=== PATIENT | female | born 1950 | race Two or more races ===

== ENCOUNTER 2023-04-28 05:59 | Inpatient (IN) | payer OTHER ==
[~2023-04-28] VITALS: Ht 157.5 cm; Wt 74.0 kg
[~2023-04-28 05:59] MED LIST: AMLO1TAB22 PO; ASPI1TAB20 PO; ATO40T PO; CLOP75TA28 PO; GLIP5TAB12 PO; LISI10TA34 PO; METF-372 PO; METO-289 PO; OXYB5SYP4 PO
[2023-04-28] MEDS ORDERED: ceFAZolin 2 GM/D5W100ml 100 ML IV ONE (06:16)
[2023-04-28] MEDS ORDERED: LIDOCAINE 1% (LOCAL ANESTH.) PF 5ml SDV ONE (06:34)
[2023-04-28] MEDS ORDERED: LIDOCAINE HCL (LOCAL ANESTH.) 0.5 % 50ML MDV IJ ONE (06:35)
[2023-04-28] MEDS ORDERED: PROTAMINE SULFATE 10 MG/ML 5ML VIAL IV ONE (06:35)
[2023-04-28] MEDS ORDERED: BUPIVACAINE 0.5% P/F INJ 10 ML VIAL ONE (06:35)
[2023-04-28] MEDS ORDERED: HEPARIN SODIUM (PORCINE) 5000 UNITS/ML 1ML VIAL ONE (06:35)
[2023-04-28] MEDS ORDERED: SUCCINYLCHOLINE CHLORIDE 20 MG/ML 10ML VIAL IV ONE (07:03)
[2023-04-28] MEDS ORDERED: PROPOFOL 10 MG/ML 20 ML IV ONE (07:06)
[2023-04-28] MEDS ORDERED: fentaNYL CITRATE 100 MCG/2 ML VL ONE ×2 (07:06→07:40)
[2023-04-28] MEDS ORDERED: THROMBIN (BOVINE) 5000 UNIT SOL VIAL ONE (07:16)
[2023-04-28] MEDS ORDERED: GELATIN 1 SPONGE SIZE 100 TOP ONE (07:16)
[2023-04-28] MEDS ORDERED: LABETALOL HCL 5 MG/ML ML 20ML VIAL IV ONE (07:34)
[2023-04-28] MEDS ORDERED: ROCURONIUM 10MG/ML 10ML VIAL IV ONE (07:48)
[2023-04-28] MEDS ORDERED: ePHEDrine SULFATE 50 MG/ML AMP ONE (07:49)
[2023-04-28] MEDS ORDERED: ONDANSETRON HCL 4 MG/2 ML VIAL ONE (08:02)
[2023-04-28] MEDS ORDERED: LIDOCAINE 1% INJ PF 5ML AMP ONE (08:27)
[2023-04-28] MEDS ORDERED: SUGAMMADEX 200mg/2ml Vial (100MG/ML) IV ONE (09:03)
[2023-04-28 09:28] VITALS: PULSE 86; RESP 20; O2SAT 97
[2023-04-28] MEDS ORDERED: ONDANSETRON HCL 4 MG/2 ML VIAL IV PRN (09:45)
[2023-04-28] MEDS: InsuLIN REG 1unit/0.01ml Soln (100units/ml) SC ONE ×2 (09:45→09:48)
[2023-04-28] MEDS ORDERED: MEPERIDINE HCL (25 MG/ML) 1ML VIAL IV PRN (09:45)
[2023-04-28] MEDS ORDERED: HYDROmorphone HCL 2 MG/ML VL/or syr IV PRN (09:45)
[2023-04-28] MEDS ORDERED: InsuLIN REG 1unit/0.01ml Soln (100units/ml) ONE ×2 (09:47→15:38)
[2023-04-28] MEDS: LABETALOL HCL 5 MG/ML 4ML SYRINGE IV PRN ×4 (09:51→10:36)
[2023-04-28] MEDS ORDERED: hydrALAZINE HCL 20 MG/ML VL ONE (10:48)
[2023-04-28] MEDS ORDERED: hydrALAZINE HCL 20 MG/ML VL IV ONE (11:00)
[2023-04-28] MEDS ORDERED: DEXTROSE (50%) 50ML SYRG IV PRN (15:45)
[2023-04-28 16:56] VITALS: BP 145/51; PULSE 84; RESP 18; TEMP 98.6; O2SAT 94
[2023-04-28] MEDS ORDERED: hydrALAZINE HCL 20 MG/ML VL IV PRN (17:45)
[2023-04-28] MEDS: ACCU-CHEK COMFORT CURVE STRIP VI SCH ×2 (17:47→20:55)
[2023-04-28] MEDS: InsuLIN REG 1unit/0.01ml Soln (100units/ml) SC SCH ×2 (17:47→21:02)
[2023-04-28 18:58] LABS: Basophils # (auto) 0.1 10 ^3/uL (0-0.2); Basophils % (auto) 0.8 % (0.0-2.0); Eosinophils # (auto) 0.1 10 ^3/uL (0-0.8); Eosinophils % (auto) 1.2 % (0.0-7.0); Hematocrit 32.7 % (36.0-46.0); Hemoglobin 10.4 g/dL (12.2-16.2); Lymphocytes # (auto) 1.9 10 ^3/uL (0.4-5.4); Lymphocytes % (auto) 21.8 % (10.0-50.0); Mean Corpuscular Hemoglobin 25.9 pg (28.0-32.0); Mean Corpuscular Hgb Conc. 31.8 g/dL (32.0-36.0); Mean Corpuscular Volume 81.2 fL (80.0-100.0); Monocytes # (auto) 0.6 10 ^3/uL (0-1.3); Neutrophils # (auto) 6.2 10 ^3/uL (1.6-8.6); Neutrophils % (auto) 69.2 % (37.0-80.0); Red Blood Cells 4.03 10^6/uL (4.0-5.20); Red Cell Distribution Width 16.4 % (11.8-14.3); White Blood Cell 8.9 10^3/uL (4.4-10.8)
[2023-04-28 19:22] LABS: Potassium 4.6 mmol/L (3.5-5.1)
[2023-04-28 19:24] LABS: Calcium 9.4 mg/dL (8.5-10.1)
[2023-04-28 19:29] LABS: BUN/Creatinine Ratio 14.5 (10.0-20.0)
[2023-04-28 19:31] LABS: Albumin 4.1 g/dL (3.2-4.8); Phosphorus 3.2 mg/dL (2.4-5.1)
[2023-04-28 20:00] VITALS: PULSE 84; PULSE 87; RESP 18; O2SAT 92
[2023-04-28] MEDS: ENOXAPARIN SOD 40 MG/0.4 ML SYRINGE SC SCH (21:04)
[2023-04-28] MEDS ORDERED: ACETAMINOPHEN 325 MG TAB PO PRN (21:45)
[2023-04-28 22:00] VITALS: BP 131/41; PULSE 87; RESP 18; TEMP 99.2; O2SAT 92
[2023-04-29] VITALS (8 sets, daily range): BP systolic 139–169; BP diastolic 47–60; PULSE 78–97; RESP 16–19; TEMP 98.3–99.5; O2SAT 90–94
[2023-04-29] MEDS: ACCU-CHEK COMFORT CURVE STRIP VI SCH ×3 (06:22→11:39)
[2023-04-29] MEDS: InsuLIN REG 1unit/0.01ml Soln (100units/ml) SC SCH ×3 (06:27→17:30)
[2023-04-29] MEDS: ENOXAPARIN SOD 40 MG/0.4 ML SYRINGE SC SCH (09:02)
== END 2023-04-29 19:10 | disposition home or self-care (01) | DRG 39 ==
LOC: SUR 05:59 → TELE 11:11 → TELE-CENTR 17:06
PROVIDERS: ADMIT Internal Medicine; ATTEND Surgery Vascular Surgery
PROC: 03UL0KZ Supplement Left Internal Carotid Artery with Nonautologous Tissue Substitute, Open Approach (ICD-10-PCS; 2023-04-28)
PROC: 03CL0ZZ Extirpation of Matter from Left Internal Carotid Artery, Open Approach (ICD-10-PCS; principal; 2023-04-28 07:21)
DX: I65.22 Occlusion and stenosis of left carotid artery (principal); E11.9 Type 2 diabetes mellitus without complications; I10 Essential (primary) hypertension; E78.5 Hyperlipidemia, unspecified; R32 Unspecified urinary incontinence; Z79.82 Long term (current) use of aspirin; Z79.899 Other long term (current) drug therapy; Z79.02 Long term (current) use of antithrombotics/antiplatelets
CPT/HCPCS: 36415; 80069; 82962; 85025; 86850; 86900; 86901; G0378; J0330; J1815; J2405; J2704; J3490